=== PATIENT | female | born 1950 | race Hispanic/Latino ===

== ENCOUNTER 2017-11-11 19:36 | Inpatient (IN) | payer OTHER ==
[~2017-11-11] VITALS: Ht 160 cm; Wt 114.8 kg
[~2017-11-11 19:36] MED LIST: ALPRAZOLAM1 MG PO; ANUSOL HC25 MG/SUPP RC; CEPHALEXIN500 M1 PO; ENALAPRIL MALEA10 MG MT; GLIMEPIRIDE2 MG PO; LEVOTHYROXINE50 MCG PO; LOSARTAN POTASS25 MG PO; MECLIZINE HCL25 MG PO; METFORMIN HCL500 MG PO; MIRALAX PACKET17 GM PO; NAPROXEN500 MG PO; PANTOPRAZOLE SO40 MG PO; PROTONIX40 M1; PROTONIX40 MG PO; ULTRAM 50MG50 MG PO; ULTRAM50 MG PO; VASOTEC10 MG PO; Z.0.ALPRAZOLAM1 MG MT; Z.0.GLIMEPIRIDE2 MG MT
[2017-11-11] MEDS ORDERED: ONDANSETRON HCL INJ 2 MG/ML VIAL IV STA (19:57)
[2017-11-11] MEDS: MORPHINE SULFATE INJ 4 MG/ML INJ IV PRN (20:30)
[2017-11-11] MEDS: SODIUM CHLORIDE 0.9% 1000ML 1,000 ML IV SCH (20:35)
--- NOTE | 2017-11-11 21:48 | Diagnostic Imaging Report ---
EXAM: CT ABDOMEN AND PELVIS WITH IV CONTRAST INDICATION: Abdominal pain COMPARISON: CT of the abdomen and pelvis January 07, 2016 and August 10, 2010 TECHNIQUE: The abdomen and pelvis were scanned using a multidetector helical scanner. Coronal and sagittal reformations were obtained. Dose modulation, iterative reconstruction, and/or weight based adjustment of the mA/kV was utilized to reduce the radiation dose to as low as reasonably achievable. Routine protocol performed. IV Contrast: 96 cc Isovue-300 Oral Contrast: None CTDIvol has been reviewed. It is below the limits set by the Radiation Protocol Committee (RPC). FINDINGS: LOWER THORAX: No consolidations LIVER: No masses BILIARY: The gallbladder has been removed. Expected mild ductal dilatation secondary to reservoir effect. SPLEEN: No masses PANCREAS: No masses ADRENALS: No nodules KIDNEYS: No enhancing masses. No hydronephrosis. GI TRACT: Mildly prominent loops of fluid-filled small bowel measuring up to 3 cm. The colon is unremarkable. No evidence of appendicitis. Surgical changes of the bowel in the right lower quadrant. VESSELS: Unremarkable PERITONEUM/RETROPERITONEUM: No free air or fluid LYMPH NODES: No lymphadenopathy REPRODUCTIVE ORGANS: Normal BLADDER: Decompressed SOFT TISSUES: Umbilical hernia containing a loop of colon without evidence of obstruction. Stable right lower midline subcutaneous density that may be from prior hernia repair surgery. BONES: No suspicious bone lesions. IMPRESSION: Mildly prominent loops of small bowel with air-fluid levels, similar in appearance to prior exams. This could represent recurrent partial small bowel obstruction or ileus. Signed by: Dr. Anju Subramanian M.D. on 11/11/2017 9:45 PM
[2017-11-11] MEDS ORDERED: DEXTROSE 50% SYRINGE 50 ML IV PRN (23:30)
[2017-11-11 23:55] VITALS: BP 161/71
[2017-11-12] MEDS: ONDANSETRON HCL INJ 2 MG/ML VIAL IV PRN ×4 (00:30→20:53)
[2017-11-12] MEDS: MORPHINE SULFATE INJ 4 MG/ML INJ IV PRN ×2 (00:30→04:29)
[2017-11-12] MEDS ORDERED: DONNATAL/LIDOCAINE/MAALOX 30 ML SUSP PO ONE (00:30)
[2017-11-12] MEDS: SODIUM CHLORIDE 0.9% 1000ML 1,000 ML IV SCH ×2 (01:00→17:30)
[2017-11-12 04:30] VITALS: BP 148/68
[2017-11-12 06:55] LABS: BASOPHILS % 0.3 % (0.0-1.0); EOSINOPHILS % 0.1 % (0.0-6.0); HEMATOCRIT 39.1 % (34.2-44.1); HEMOGLOBIN 12.8 g/dL (12.0-16.0); LYMPHOCYTES # (AUTO) 0.7 (1.0-3.2); LYMPHOCYTES % 5.7 % (18.0-39.1); MEAN CORPUSCULAR HEMOGLOBIN 28.7 pg (28-32); MEAN CORPUSCULAR HGB CONC 32.7 g/dL (31-35); MEAN CORPUSCULAR VOLUME 87.7 fL (81-99); MONOCYTES # (AUTO) 0.8 (0.2-0.8); MONOCYTES % 7.2 % (4.4-11.3); NEUTROPHILS # (AUTO) 9.9 (2.1-6.9); NEUTROPHILS % 86.4 % (38.7-80.0); PLATELET COUNT 171 x10e3/uL (140-360); RED BLOOD COUNT 4.46 x10e6/uL (3.6-5.1); RED CELL DISTRIBUTION WIDTH 13.5 % (11.7-14.4)
[2017-11-12 07:16] LABS: ALANINE AMINOTRANSFERASE 149 IU/L (0-55); ALBUMIN 3.2 g/dL (3.5-5.0); ALBUMIN/GLOBULIN RATIO 1.1 (0.8-2.0); ALKALINE PHOSPHATASE 101 IU/L (40-150); ANION GAP 14.4 mmol/L (8-16); BLOOD UREA NITROGEN 20 mg/dL (7-26); BUN/CREATININE RATIO 29 (6-25); CARBON DIOXIDE 27 mmol/L (22-29); CHLORIDE 101 mmol/L (98-107); CREATININE, SERUM 0.69 mg/dL (0.57-1.11); EST GLOMERULAR FILTRATION RATE > 60 ML/MIN (60-); GLUCOSE 274 mg/dL (74-118); POTASSIUM 5.4 mmol/L (3.5-5.1); SODIUM 137 mmol/L (136-145)
[2017-11-12] MEDS: INSULIN REGULAR, HUMAN 100 UNIT/1 ML 3ML VIAL SQ SCH ×4 (07:30→20:54)
[2017-11-12 08:20] VITALS: BP 151/67
--- NOTE | 2017-11-12 10:19 | History and Physical ---
This 67-year-old female patient presented to the emergency room with complaint of abdominal pain, abdominal distention, and nausea. HISTORY OF PRESENT ILLNESS: Ms. Alta Zapata is a 67-year-old female patient with a previous history of small-bowel obstruction, diabetes mellitus, hypertension, and hyperlipidemia. She presented to the emergency room with complaint of abdominal pain, nausea and vomiting. The patient has moderate to severe pain. The patient had last BM yesterday. ALLERGIES: NO KNOWN DRUG ALLERGIES. PAST MEDICAL HISTORY: Diabetes mellitus, hypertension, anxiety. PAST SURGICAL HISTORY: Cholecystectomy, , ovary removal, partial colectomy and gastric reconstruction. SOCIAL HISTORY: Denies smoking. Denies using alcohol. REVIEW OF SYSTEMS: As per history of present illness. Abdominal pain and nausea. Distended abdomen. MEDICATIONS: See from the list. PHYSICAL EXAMINATION VITAL SIGNS: Temperature 98, pulse rate 88, respirations 20, blood pressure 110/70. HEENT: Normocephalic, atraumatic. NECK: No JVD. No lymphadenopathy. LUNGS: Bilateral equal air entry. No rales. No rhonchi. HEART: S1 and S2, regular. No murmur. No gallop. ABDOMEN: Distention present. Bowel sounds diminished. NEUROLOGIC: No focal neurological deficit. ADMISSION IMPRESSION AND DIAGNOSES 1. Small-bowel obstruction. 2. Hyperkalemia. 3. Leukocytosis. 4. Elevated liver function tests. PLAN: The patient will be admitted with the above diagnoses. Will do orogastric tube suctioning. Will place n.p.o. and obtain repeat LFTs. Also obtain abdominal ultrasound, amylase and lipase. Surgery consultation has been done by Dr. See. Job#: [id number]
[2017-11-12 10:25] LABS: AMYLASE 35 U/L (25-125); LIPASE 12 U/L (8-78)
[2017-11-12 12:00] VITALS: BP 149/70
--- NOTE | 2017-11-12 13:52 | Diagnostic Imaging Report ---
EXAM: Complete Abdominal Ultrasound INDICATION: Small bowel obstruction. Abdominal pain COMPARISON: CT scan 11/11/2017 TECHNIQUE: Transverse and longitudinal images of the upper abdomen were obtained. FINDINGS: Liver: Size: 14.1 cm in the right midclavicular line, normal Appearance: Slight increased echogenicity, smooth contour Mass: No focal masses. Likely mild focal fatty sparing in the left hepatic lobe. Spleen: Size: 9.7 cm in length, normal Echogenicity: Normal Mass: No focal masses Gallbladder: Prior cholecystectomy Bile Ducts: Intrahepatic Ducts: No dilatation Extrahepatic Ducts: Common bile duct measures 1.5 cm, prominent likely due to reservoir effect from cholecystectomy Pancreas: Visualized portions of the pancreatic head, neck and proximal body are normal. Kidneys: Length: Right 9.2 cm Left 10.2 cm Echogenicity: Normal Collecting System: No hydronephrosis Stone: None Cyst/Mass: None Vessels: Aorta: Visualized portions are normal Inferior Vena Cava: Visualized portions are normal Main Portal Vein: 1.1 cm, normal size with hepatopetal flow. Free Fluid: No ascites or pleural effusion IMPRESSION: Limited study due to patient's body habitus. Prominent common bile duct likely due to reservoir effect from prior cholecystectomy. No renal stones are seen. Signed by: Dr. Cyrus Pfeiffer M.D. on 11/12/2017 1:49 PM
[2017-11-12 16:00] VITALS: BP 133/60
[2017-11-12 20:00] VITALS: BP 133/71
[2017-11-12] MEDS: LORAZEPAM INJ 2 MG/ML VIAL IV PRN (20:53)
[2017-11-13] VITALS (8 sets, daily range): BP systolic 157–180; BP diastolic 66–81
[2017-11-13] MEDS: SODIUM CHLORIDE 0.9% 1000ML 1,000 ML IV SCH ×4 (03:32→22:05)
--- NOTE | 2017-11-13 05:58 | Diagnostic Imaging Report ---
EXAM: ABDOMEN ACUTE SERIES W/PA CXR INDICATION: Small bowel obstruction COMPARISON: None FINDINGS: LINES/TUBES: Nasal/orogastric tube terminates in the expected location of the proximal stomach. LUNGS: No consolidations or edema. PLEURA: Trace bilateral pleural effusions. HEART AND MEDIASTINUM: Normal size and contour. BOWEL PATTERN: Mildly prominent loops of small bowel. BONES AND SOFT TISSUES: No acute bone findings. No abnormal calcifications. Surgical clips right upper quadrant of the abdomen. IMPRESSION: No acute thoracic abnormality. Stable mildly dilated loops of small bowel with air-fluid levels. This could represent partial small bowel obstruction or ileus. Signed by: Dr. Anju Subramanian M.D. on 11/13/2017 5:55 AM
[2017-11-13 06:13] LABS: BASOPHILS % 0.5 % (0.0-1.0); EOSINOPHILS # (AUTO) 0.1 (0.0-0.4); HEMATOCRIT 39.3 % (34.2-44.1); HEMOGLOBIN 12.6 g/dL (12.0-16.0); LYMPHOCYTES # (AUTO) 1.3 (1.0-3.2); LYMPHOCYTES % 19.8 % (18.0-39.1); MEAN CORPUSCULAR HEMOGLOBIN 28.2 pg (28-32); MEAN CORPUSCULAR HGB CONC 32.1 g/dL (31-35); MEAN CORPUSCULAR VOLUME 87.9 fL (81-99); MONOCYTES # (AUTO) 0.7 (0.2-0.8); MONOCYTES % 10.3 % (4.4-11.3); NEUTROPHILS # (AUTO) 4.5 (2.1-6.9); NEUTROPHILS % 66.9 % (38.7-80.0); PLATELET COUNT 169 x10e3/uL (140-360); RED BLOOD COUNT 4.47 x10e6/uL (3.6-5.1); RED CELL DISTRIBUTION WIDTH 13.9 % (11.7-14.4)
[2017-11-13 06:38] LABS: ALANINE AMINOTRANSFERASE 135 IU/L (0-55); ALBUMIN 3.2 g/dL (3.5-5.0); ALKALINE PHOSPHATASE 94 IU/L (40-150); ANION GAP 14.1 mmol/L (8-16); BLOOD UREA NITROGEN 20 mg/dL (7-26); BUN/CREATININE RATIO 33 (6-25); CALCIUM 8.9 mg/dL (8.4-10.2); CARBON DIOXIDE 27 mmol/L (22-29); CHLORIDE 104 mmol/L (98-107); CREATININE, SERUM 0.61 mg/dL (0.57-1.11); EST GLOMERULAR FILTRATION RATE > 60 ML/MIN (60-); GLUCOSE 189 mg/dL (74-118); POTASSIUM 4.1 mmol/L (3.5-5.1); SODIUM 141 mmol/L (136-145)
[2017-11-13] MEDS: INSULIN REGULAR, HUMAN 100 UNIT/1 ML 3ML VIAL SQ SCH ×4 (08:30→20:41)
[2017-11-13] MEDS: ONDANSETRON HCL INJ 2 MG/ML VIAL IV PRN (10:40)
[2017-11-13] MEDS: MORPHINE SULFATE INJ 4 MG/ML INJ IV PRN (10:40)
[2017-11-13] MEDS: PANTOPRAZOLE 40 MG 10ML VIAL IV SCH (20:31)
[2017-11-13] MEDS: LORAZEPAM INJ 2 MG/ML VIAL IV PRN (22:05)
[2017-11-14] VITALS: BP 176/77
[2017-11-14 04:00] VITALS: BP 165/72
[2017-11-14 06:01] LABS: BASOPHILS % 0.4 % (0.0-1.0); EOSINOPHILS # (AUTO) 0.1 (0.0-0.4); EOSINOPHILS % 1.6 % (0.0-6.0); HEMATOCRIT 37.3 % (34.2-44.1); LYMPHOCYTES # (AUTO) 1.3 (1.0-3.2); LYMPHOCYTES % 18.8 % (18.0-39.1); MEAN CORPUSCULAR HEMOGLOBIN 28.8 pg (28-32); MEAN CORPUSCULAR HGB CONC 32.2 g/dL (31-35); MEAN CORPUSCULAR VOLUME 89.4 fL (81-99); MONOCYTES # (AUTO) 0.7 (0.2-0.8); MONOCYTES % 9.5 % (4.4-11.3); NEUTROPHILS # (AUTO) 4.7 (2.1-6.9); NEUTROPHILS % 69.1 % (38.7-80.0); PLATELET COUNT 165 x10e3/uL (140-360); RED BLOOD COUNT 4.17 x10e6/uL (3.6-5.1); RED CELL DISTRIBUTION WIDTH 13.6 % (11.7-14.4)
[2017-11-14 06:20] LABS: ALANINE AMINOTRANSFERASE 98 IU/L (0-55); ALKALINE PHOSPHATASE 104 IU/L (40-150); ANION GAP 14.6 mmol/L (8-16); BLOOD UREA NITROGEN 17 mg/dL (7-26); BUN/CREATININE RATIO 33 (6-25); CALCIUM 8.5 mg/dL (8.4-10.2); CARBON DIOXIDE 26 mmol/L (22-29); CHLORIDE 107 mmol/L (98-107); CREATININE, SERUM 0.52 mg/dL (0.57-1.11); EST GLOMERULAR FILTRATION RATE > 60 ML/MIN (60-); GLUCOSE 137 mg/dL (74-118); POTASSIUM 3.6 mmol/L (3.5-5.1); SODIUM 144 mmol/L (136-145)
--- NOTE | 2017-11-14 06:20 | Diagnostic Imaging Report ---
EXAM: ABDOMEN COMP INCL UPR or DECUB INDICATION: Small bowel obstruction COMPARISON: November 13, 2017 FINDINGS: LINES/TUBES: Tip of nasogastric tube terminates in the expected location of the proximal stomach. BOWEL PATTERN: No evidence for obstruction. SOFT TISSUES: Surgical clips right upper quadrant of the abdomen. LUNG BASES: Not well visualized. BONES: No acute findings. IMPRESSION: Interval resolution of air-filled loops of mildly dilated small bowel. This could represent resolving small bowel obstruction or ileus. Signed by: Dr. Anju Subramanian M.D. on 11/14/2017 6:17 AM
[2017-11-14 08:30] VITALS: BP 170/77
[2017-11-14] MEDS: INSULIN REGULAR, HUMAN 100 UNIT/1 ML 3ML VIAL SQ SCH ×4 (08:30→20:54)
[2017-11-14] MEDS: PANTOPRAZOLE 40 MG 10ML VIAL IV SCH (10:00)
[2017-11-14] MEDS: SODIUM CHLORIDE 0.9% 1000ML 1,000 ML IV SCH ×3 (10:12→18:30)
[2017-11-14 10:24] VITALS: BP 170/77
[2017-11-14 20:00] VITALS: BP 164/72
[2017-11-14] MEDS: LORAZEPAM INJ 2 MG/ML VIAL IV PRN (23:33)
[2017-11-15] VITALS (8 sets, daily range): BP systolic 154–176; BP diastolic 71–78
[2017-11-15] MEDS: INSULIN REGULAR, HUMAN 100 UNIT/1 ML 3ML VIAL SQ SCH ×4 (07:30→21:00)
--- NOTE | 2017-11-15 08:15 | Diagnostic Imaging Report ---
EXAM: Abdomen 2 Views INDICATION: Small bowel obstruction. COMPARISON: KUB 11/14/2017 FINDINGS: Mild amount of stool in the colon. Dilated small bowel loops in the midabdomen is again seen measuring up to 4.4 cm in diameter. No renal calculi. Cholecystectomy clips. No abnormal soft tissue masses. Mild degenerative changes in the lumbar spine and pelvis. IMPRESSION: 1. Small bowel obstruction remains present. 2. On previous KUB, the bowel loops may have become fluid-filled. Signed by: Dr. Matthew Salvador M.D. on 11/15/2017 8:11 AM
[2017-11-15] MEDS: PANTOPRAZOLE 40 MG 10ML VIAL IV SCH (09:45)
[2017-11-15] MEDS: SODIUM CHLORIDE 0.9% 1000ML 1,000 ML IV SCH ×2 (14:00→21:33)
[2017-11-15] MEDS: DEXTROSE 5%/0.45% SOD CHL 1,000 ML IV SCH (21:20)
[2017-11-15] MEDS: LORAZEPAM INJ 2 MG/ML VIAL IV PRN (22:41)
[2017-11-16] VITALS (7 sets, daily range): BP systolic 146–164; BP diastolic 66–71
[2017-11-16] MEDS ORDERED: IOPAMIDOL 370 MG/ML 200 ML INFUS..BTL INJ ONE ×2 (04:57→22:44)
[2017-11-16] MEDS ORDERED: SODIUM CHLORIDE 0.9% 50ML 50 ML ONE ×2 (04:57→22:44)
[2017-11-16] MEDS ORDERED: DIATRIZOATE MEGL/DIATRIZOA SOD 30 ML BTL PO ONE (04:57)
--- NOTE | 2017-11-16 06:48 | Diagnostic Imaging Report ---
EXAM: CT ABDOMEN/PELVIS W DATE: 11/16/2017 6:00 AM INDICATION: \S\SBO//WITH ORAL GASTOGRAFIN AND IV CONTRAST \S\Y COMPARISON: 11/11/2017 TECHNIQUE: The abdomen and pelvis were scanned using a multidetector helical scanner. Coronal and sagittal reformations were obtained. CT low dose techniques were utilized, as applicable. IV Contrast: 100 ml Isovue 300/370 Oral contrast was administered. FINDINGS: Evaluation is mildly degraded by body habitus. LOWER THORAX: Bibasilar atelectasis/scar. LIVER/BILIARY: No masses. Stable dilation of the common bile duct status post cholecystectomy. SPLEEN: Unremarkable PANCREAS: Unremarkable ADRENALS: No nodules KIDNEYS: No suspicious renal masses. No hydronephrosis. GI TRACT: Resolved dilated loops from prior. No wall thickening or evidence of obstruction. Diverticulosis. VESSELS: Mild atherosclerotic changes. PERITONEUM/RETROPERITONEUM: No free air or fluid LYMPH NODES: No lymphadenopathy REPRODUCTIVE ORGANS/BLADDER: Unremarkable SOFT TISSUES: Unchanged umbilical hernia containing nonobstructed transverse colon. Stable changes from right lower quadrant ventral hernia repair. BONES: Scattered degenerative changes. IMPRESSION: No residual evidence of small bowel obstruction. Signed by: Dr Ester Rodriguez MD on 11/16/2017 6:44 AM
[2017-11-16] MEDS: INSULIN REGULAR, HUMAN 100 UNIT/1 ML 3ML VIAL SQ SCH ×4 (07:30→20:55)
[2017-11-16] MEDS: DEXTROSE 5%/0.45% SOD CHL 1,000 ML IV SCH (07:41)
[2017-11-16] MEDS: PANTOPRAZOLE 40 MG 10ML VIAL IV SCH (08:21)
[2017-11-16] MEDS: MORPHINE SULFATE INJ 4 MG/ML INJ IV PRN (10:49)
[2017-11-16] MEDS: ONDANSETRON HCL INJ 2 MG/ML VIAL IV PRN (10:49)
[2017-11-16] MEDS: LORAZEPAM INJ 2 MG/ML VIAL IV PRN (22:50)
[2017-11-17] VITALS: BP 166/77
[2017-11-17 04:00] VITALS: BP 143/62
[2017-11-17 05:54] LABS: BASOPHILS % 0.4 % (0.0-1.0); EOSINOPHILS # (AUTO) 0.2 (0.0-0.4); EOSINOPHILS % 2.6 % (0.0-6.0); HEMATOCRIT 34.3 % (34.2-44.1); HEMOGLOBIN 11.2 g/dL (12.0-16.0); LYMPHOCYTES % 14.2 % (18.0-39.1); MEAN CORPUSCULAR HEMOGLOBIN 28.3 pg (28-32); MEAN CORPUSCULAR HGB CONC 32.7 g/dL (31-35); MEAN CORPUSCULAR VOLUME 86.6 fL (81-99); MONOCYTES # (AUTO) 0.6 (0.2-0.8); MONOCYTES % 8.5 % (4.4-11.3); NEUTROPHILS # (AUTO) 5.3 (2.1-6.9); NEUTROPHILS % 72.4 % (38.7-80.0); PLATELET COUNT 168 x10e3/uL (140-360); RED BLOOD COUNT 3.96 x10e6/uL (3.6-5.1); RED CELL DISTRIBUTION WIDTH 13.8 % (11.7-14.4)
[2017-11-17 06:19] LABS: ALANINE AMINOTRANSFERASE 52 IU/L (0-55); ALBUMIN/GLOBULIN RATIO 1.2 (0.8-2.0); ALKALINE PHOSPHATASE 92 IU/L (40-150); ANION GAP 15.7 mmol/L (8-16); BLOOD UREA NITROGEN 6 mg/dL (7-26); BUN/CREATININE RATIO 11 (6-25); CALCIUM 8.9 mg/dL (8.4-10.2); CARBON DIOXIDE 24 mmol/L (22-29); CHLORIDE 104 mmol/L (98-107); CREATININE, SERUM 0.55 mg/dL (0.57-1.11); EST GLOMERULAR FILTRATION RATE > 60 ML/MIN (60-); GLUCOSE 142 mg/dL (74-118); POTASSIUM 3.7 mmol/L (3.5-5.1); SODIUM 140 mmol/L (136-145)
[2017-11-17] MEDS: INSULIN REGULAR, HUMAN 100 UNIT/1 ML 3ML VIAL SQ SCH (07:30)
[2017-11-17 07:58] VITALS: BP 171/75
[2017-11-17 09:00] VITALS: BP 171/75
[2017-11-17] MEDS: PANTOPRAZOLE 40 MG 10ML VIAL IV SCH (09:00)
[2017-11-17 11:34] VITALS: BP 173/77
--- NOTE | 2017-11-17 17:17 | Discharge Summary ---
She is a 67-year-old female patient who presented to the emergency room with abdominal pain, nausea and vomiting. ADMITTING IMPRESSION, DIAGNOSES 1. Partial small bowel obstruction. 2. Diabetes mellitus. 3. Hypertension. 4. Obesity. 5. Hyperlipidemia. 6. Arthritis. HOSPITAL COURSE SUMMARY: The patient was admitted with the above diagnoses. The patient had a surgical consultation with NG tube attempted but not able to go through the nose, so the patient had an oral gastric tube placed, and put it on suction and gastric suctioning was done. The patient was kept n.p.o. IV fluids were given. The patient had access done. The patient had the obstruction relieved. CT scan of the abdomen was also done. Finally, the patient had obstruction relieved. Once the obstruction was relieved, the patient was started on clear liquids. Now, the patient will be discharged home on a bland diet and avoid constipation. The patient will be followed up as an outpatient with me as well as surgery to prevent any further obstructions. JAMES JARRELL MD Job#: [id number]
== END 2017-11-17 13:24 | disposition home or self-care (01) | DRG 389 ==
LOC: FSED 19:36 → ERHOLD 22:39 → INTOOBSV 22:39 → MED/SURG 23:47 → OBSVTOIN 11-12 16:27
PROVIDERS: ADMIT Internal Medicine; ATTEND Internal Medicine
DX: K56.600 Partial intestinal obstruction, unspecified as to cause (principal); Z68.41 Body mass index [BMI] 40.0-44.9, adult; E66.01 Morbid (severe) obesity due to excess calories; E11.9 Type 2 diabetes mellitus without complications; I10 Essential (primary) hypertension; F41.9 Anxiety disorder, unspecified; E78.5 Hyperlipidemia, unspecified; M19.90 Unspecified osteoarthritis, unspecified site; E87.5 Hyperkalemia; Z79.84 Long term (current) use of oral hypoglycemic drugs
CPT/HCPCS: 36415; 74022; 74177; 76700; 80053; 81003; 82150; 82948; 83690; 85025; 99284; G0378; J2060; J2270; J2405; J7030; Q9967

== ENCOUNTER → 2019-07-28 | Outpatient (CLI) | payer OTHER ==
[2019-07-28 17:20] LABS: BLOOD UREA NITROGEN 17 mg/dL (7-26); BUN/CREATININE RATIO 27 (6-25); CREATININE, SERUM 0.63 mg/dL (0.57-1.11); EST GLOMERULAR FILTRATION RATE > 60 ML/MIN (60-)
--- NOTE | 2019-07-28 18:23 | Diagnostic Imaging Report ---
EXAM: CT Abdomen and Pelvis WITH contrast INDICATION: ^[id number] ^1730 ^INTESTINAL ADHESIONS COMPARISON: CT abdomen/pelvis, 11/16/2017 TECHNIQUE: Abdomen and pelvis were scanned utilizing a multidetector helical scanner from the lung base to the pubic symphysis after administration of IV contrast. Coronal and sagittal reformations were obtained. Routine protocol was performed. Scan was performed when during portal venous phase. Dose modulation, iterative reconstruction, and/or weight based adjustment of the mA/kV was utilized to reduce the radiation dose to as low as reasonably achievable. IV CONTRAST: 100 mL of Isovue-370 ORAL CONTRAST: Water RADIATION DOSE: Total DLP: 848.29 mGy*cm Estimated effective dose: (DLP x 0.015 x size factor) mSv COMPLICATIONS: None FINDINGS: LINES and TUBES: None. LOWER THORAX: Lung bases are clear. Heart size normal. HEPATOBILIARY: Diffuse low density of the liver relative to spleen is nonspecific but may be seen with steatosis. No focal hepatic lesions. The common bile duct is dilated measuring 1.4 cm no intrahepatic dilatation, unchanged from prior exam. This likely represents postcholecystectomy reservoir effect. GALLBLADDER: Surgical absence of the gallbladder with cholecystectomy clips. SPLEEN: No splenomegaly. PANCREAS: No focal masses or ductal dilatation. ADRENALS: No adrenal nodules KIDNEYS/URETERS: Kidneys enhance symmetrically. No hydronephrosis. No cystic or solid mass lesions. No stones. GI TRACT: Sigmoid diverticulosis with no CT evidence for acute diverticulitis. The mid transverse colon extends into a ventral hernia with a similar appearance to the previous exam. There is no evidence for dilatation or obstruction. The appendix is not seen. PELVIC ORGANS/BLADDER: Urinary bladder has an unremarkable appearance. The uterus is anteverted. No discrete abnormal mass or fluid collection in the pelvis. LYMPH NODES: No dominant lymph node mass is seen in the abdomen, retroperitoneum or pelvis. VESSELS: No aneurysm or dissection of the abdominal aorta. IVC and portal system appear unremarkable. SMA, celiac and SAMANTA are patent. PERITONEUM / RETROPERITONEUM: No pneumoperitoneum or ascites. BONES: No acute or suspicious bony lesions. Degenerative changes are seen in the thoracolumbar spine. SOFT TISSUES: Ventral hernia with 4.1 cm defect near the umbilicus contains a portion of the transverse colon without dilatation or evidence for obstruction. This is unchanged from last exam. Somewhat lower, and the anterior right lower quadrant, there is an area of subcutaneous soft tissue thickening, stable from last exam and likely related to previous surgery in this area. IMPRESSION: 1. No evidence for bowel dilatation or obstruction. A portion of the mid transverse colon extends into a ventral hernia with an appearance unchanged from previous exam without specific evidence for obstruction. 2. Sigmoid diverticulosis with no CT evidence for acute diverticulitis. Staff: Snehal Signed by: Dr. Dalton Brian M.D. on 07/28/2019 6:20 PM
== END ==
LOC: CT 16:15
PROVIDERS: ATTEND Internal Medicine
DX: K56.50 Intestinal adhesions [bands], unspecified as to partial versus complete obstruction (principal)
CPT/HCPCS: 36415; 74177; 82565; 84520

== ENCOUNTER → 2020-11-02 | Outpatient (CLI) | payer OTHER | LOC: MAMMO 09:31 | PROVIDERS: ATTEND Internal Medicine | DX: Z12.31 Encounter for screening mammogram for malignant neoplasm of breast (principal) | CPT/HCPCS: 77067 ==

== ENCOUNTER → 2022-04-17 | Outpatient (CLI) | payer OTHER | LOC: RAD 14:56 | PROVIDERS: ATTEND Internal Medicine | DX: S49.91XA Unspecified injury of right shoulder and upper arm, initial encounter (principal) ==

== ENCOUNTER → 2022-07-15 | Outpatient (CLI) | payer OTHER | LOC: MAMMO 09:06 | PROVIDERS: ATTEND Internal Medicine | DX: Z12.31 Encounter for screening mammogram for malignant neoplasm of breast (principal) | CPT/HCPCS: 77067 ==